=== PATIENT | male | born 1970 | race Caucasian/White ===

== ENCOUNTER 2023-08-14 09:40 | Outpatient (CLI) | payer OTHER, SELFPAY ==
--- NOTE | ~2023-08-14 | XR_ITS ---
EXAMINATION: [id number] DATE: 08/14/2023 10:07 INDICATION: Contusion of the anterior inferior right radius post injury 2 days prior TECHNIQUE: PA view of the chest and 3 views of the right ribs were obtained. COMPARISON: Chest radiograph dated 05/25/22 FINDINGS: Linear and streaky opacities in bilateral mid and lower lung zones and favor atelectasis over pneumon ia. Mildly displaced fracture of the anterior right seventh and eighth rib fractures are nondisplaced anterior right sixth and ninth rib fractures. No pneumothorax or pleural effusion. Heart size is nor mal. IMPRESSION: 1. Non to mildly displaced fractures of the anterior right sixth-ninth ribs. No pneumothorax or pleur al effusion. 2. Linear and streaky opacities in the bilateral mid and lower lung zones and favor atelectasis over pneumonia. Reviewed, dictated and finalized at location [facility]. IMPRESSION: 1. Non to mildly displaced fractures of the anterior right sixth-ninth ribs. No pneumothorax or pleural effusion. 2. Linear and streaky opacities in the bilateral mid and lower lung zones and f avor atelectasis over pneumonia.
== END 2023-08-14 09:41 | disposition home or self-care (01) ==
LOC: ANHIMG 09:46
PROVIDERS: PCP Physician Assistant; Visit Provider Physician Assistant
DX: S20.211A Contusion of right front wall of thorax, initial encounter (principal); S22.41XA Multiple fractures of ribs, right side, initial encounter for closed fracture; R91.8 Other nonspecific abnormal finding of lung field; W19.XXXA Unspecified fall, initial encounter
CPT/HCPCS: 71101